=== PATIENT | male | born 1955 | race Caucasian/White ===

== ENCOUNTER → 2017-01-09 | Outpatient (CLI) | payer BC ==
[~2017-01-09] MED LIST: ASPI-496 PO; CITA40TA5 PO; ESOM40CA PO; FENTANYL PATCH TP; HYDR-3240 PO; HYDR473S47 PO; LISI-167 PO; LORA0.5T PO; LORA1TAB PO; METO25TA35 PO; OMEP-110 PO; OMNIPAQUE 350 MG/ML, 100ML BOTTLE ONE; OXYC5TAB3 PO
== END | disposition home or self-care (01) ==
LOC: CFH 08:59
PROVIDERS: ATTEND Internal Medicine Hematology & Oncology
DX: C15.9 Malignant neoplasm of esophagus, unspecified (principal); K20.8 Other esophagitis; K57.30 Diverticulosis of large intestine without perforation or abscess without bleeding
CPT/HCPCS: 71260; 74177; 82565; Q9967

== ENCOUNTER → 2018-01-15 | Outpatient (CLI) | payer BC | END | disposition home or self-care (01) | LOC: CFH 08:50 | PROVIDERS: ATTEND Internal Medicine Hematology & Oncology | DX: J98.11 Atelectasis (principal); D17.1 Benign lipomatous neoplasm of skin and subcutaneous tissue of trunk; C16.0 Malignant neoplasm of cardia | CPT/HCPCS: 71260; 74177; Q9967 ==

== ENCOUNTER → 2018-02-21 | Outpatient (CLI) | payer BC ==
[~2018-02-21] MED LIST changes: -OMNIPAQUE 350 MG/ML, 100ML BOTTLE ONE
== END | disposition home or self-care (01) ==
LOC: RAD 09:27
PROVIDERS: ATTEND Internal Medicine Critical Care Medicine
DX: J18.9 Pneumonia, unspecified organism (principal); R91.8 Other nonspecific abnormal finding of lung field; C15.9 Malignant neoplasm of esophagus, unspecified; C16.0 Malignant neoplasm of cardia; Z79.82 Long term (current) use of aspirin
CPT/HCPCS: 74230

== ENCOUNTER 2018-06-27 21:29 | Emergency (ER) | payer BC ==
[2018-06-27] MEDS ORDERED: FENTANYL PF 100 MCG/2ML IV ONE (22:00)
[2018-06-27] MEDS ORDERED: SODIUM CHLORIDE FLUSH 10ML SYR IVF ONE (22:00)
[2018-06-27] MEDS ORDERED: SODIUM CHLORIDE 0.9% 1,000ML IVBOLUS ONE (22:00)
[2018-06-27] MEDS ORDERED: FENTANYL PF 100 MCG/2ML ONE (22:08)
[2018-06-27] MEDS ORDERED: OMEP40CA6 PO (22:17)
[2018-06-27 22:38] LABS: BASOPHILS # (AUTO) 0.02 x10^3/uL (0-0.1); BASOPHILS % (AUTO) 0 % (0-1); EOSINOPHILS # (AUTO) 0.02 x10^3/uL (0-0.4); EOSINOPHILS % (AUTO) 0 % (1-7); LYMPHOCYTES # (AUTO) 0.74 x10^3/uL (1-3.4); LYMPHOCYTES % (AUTO) 11 % (22-44); MD NO; MEAN CORPUSCULAR HGB CONC 33.6 g/dL (33.2-36.2); MEAN CORPUSCULAR VOLUME 83.5 fL (81-97); MEAN PLATELET VOLUME 8.8 fL (7.4-10.4); MONOCYTES # (AUTO) 0.37 x10^3/uL (0.2-0.8); MONOCYTES % (AUTO) 6 % (2-9); NEUTROPHILS # (AUTO) 5.39 x10^3/uL (1.8-6.8); NEUTROPHILS % (AUTO) 82 % (42-75); PLATELET COUNT 182 x10^3/uL (130-400); RED BLOOD COUNT 5.09 x10^6/uL (4.38-5.82); RED CELL DISTRIBUTION WIDTH 15.1 % (9.4-14.8)
[2018-06-27 22:42] LABS: ALBUMIN 3.4 g/dL (3.4-5.0); ANION GAP 9 mmol/L (5-15); CALCIUM 8.8 mg/dL (8.5-10.1); CHLORIDE 103 mmol/L (98-107); CREATININE 0.95 mg/dL (0.7-1.3); INTERNATIONAL NORMALIZED RATIO 1.01 (0.93-1.1); PROTHROMBIN TIME 10.7 Seconds (9.6-11.5)
[2018-06-27] MEDS ORDERED: KETOROLAC 30 MG/1 ML ONE (23:12)
[2018-06-27] MEDS ORDERED: METOCLOPRAMIDE 5 MG/ML, 2ML ONE (23:12)
[2018-06-27] MEDS ORDERED: DIPHENHYDRAMINE 50 MG/ML, 1ML ONE (23:12)
[2018-06-27] MEDS ORDERED: METOCLOPRAMIDE 5 MG/ML, 2ML IVPush ONE (23:30)
[2018-06-27] MEDS ORDERED: KETOROLAC 30 MG/1 ML IVPush ONE (23:30)
[2018-06-27] MEDS ORDERED: DIPHENHYDRAMINE 50 MG/ML, 1ML IVPush ONE (23:30)
[2018-06-27 23:51] VITALS: BP 128/80
== END 2018-06-28 00:44 | disposition home or self-care (01) ==
LOC: ED 23:59
DX: G44.52 New daily persistent headache (NDPH) (principal); K21.9 Gastro-esophageal reflux disease without esophagitis; I10 Essential (primary) hypertension; Z87.891 Personal history of nicotine dependence; Z87.19 Personal history of other diseases of the digestive system
CPT/HCPCS: 36415; 70450; 80048; 82040; 85025; 85610; 96361; 96374; 96375; 99284; J1200; J1885; J2765; J3010; J7030

== ENCOUNTER 2018-07-11 16:02 | Observation (INO) | payer BC, MEDICARE ==
[~2018-07-11] VITALS: Ht 175.3 cm; Wt 80.2 kg
[~2018-07-11 16:02] MED LIST changes: +OMEP40CA6 PO
[2018-07-11] MEDS ORDERED: METOCLOPRAMIDE 5 MG/ML, 2ML ONE (16:28)
[2018-07-11] MEDS ORDERED: KETOROLAC 30 MG/1 ML ONE (16:28)
[2018-07-11] MEDS ORDERED: DIPHENHYDRAMINE 50 MG/ML, 1ML ONE (16:28)
[2018-07-11] MEDS ORDERED: METOCLOPRAMIDE 5 MG/ML, 2ML IVPush ONE (16:30)
[2018-07-11] MEDS ORDERED: SODIUM CHLORIDE FLUSH 10ML SYR IVF ONE (16:30)
[2018-07-11] MEDS ORDERED: KETOROLAC 30 MG/1 ML IVPush ONE (16:30)
[2018-07-11] MEDS ORDERED: DIPHENHYDRAMINE 50 MG/ML, 1ML IVPush ONE (16:30)
[2018-07-11] MEDS ORDERED: SODIUM CHLORIDE 0.9% 1,000ML IVBOLUS ONE (16:30)
[2018-07-11 16:40] LABS: BASOPHILS # (AUTO) 0.03 x10^3/uL (0-0.1); BASOPHILS % (AUTO) 0 % (0-1); EOSINOPHILS # (AUTO) 0.16 x10^3/uL (0-0.4); EOSINOPHILS % (AUTO) 2 % (1-7); LYMPHOCYTES # (AUTO) 0.94 x10^3/uL (1-3.4); LYMPHOCYTES % (AUTO) 12 % (22-44); MD NO; MEAN CORPUSCULAR HEMOGLOBIN 27.9 pg (27.5-34.5); MEAN CORPUSCULAR HGB CONC 33.1 g/dL (33.2-36.2); MEAN CORPUSCULAR VOLUME 84.3 fL (81-97); MEAN PLATELET VOLUME 8.4 fL (7.4-10.4); MONOCYTES # (AUTO) 0.41 x10^3/uL (0.2-0.8); MONOCYTES % (AUTO) 5 % (2-9); NEUTROPHILS # (AUTO) 6.46 x10^3/uL (1.8-6.8); NEUTROPHILS % (AUTO) 81 % (42-75); PLATELET COUNT 204 x10^3/uL (130-400); RED BLOOD COUNT 5.17 x10^6/uL (4.38-5.82); RED CELL DISTRIBUTION WIDTH 15.4 % (9.4-14.8)
[2018-07-11 16:50] LABS: ALBUMIN 3.4 g/dL (3.4-5.0); ANION GAP 9 mmol/L (5-15); CALCIUM 8.3 mg/dL (8.5-10.1); CHLORIDE 111 mmol/L (98-107)
[2018-07-11 16:53] LABS: ALANINE AMINOTRANSFERASE 16 U/L (12-78); ALKALINE PHOSPHATASE 58 U/L (45-117); BILIRUBIN,TOTAL 0.2 mg/dL (0.2-1.0); CREATININE 0.93 mg/dL (0.7-1.3); TOTAL PROTEIN 6.8 g/dL (6.4-8.2)
--- NOTE | 2018-07-11 17:22 | NUR ---
PT RESTING IN BED, NAD, NO NEEDS AT THIS, FAMILY AT BEDSIDE
--- NOTE | 2018-07-11 17:39 | NUR ---
MD VALENTIN AT BEDSIDE DISCUSSING POC
[2018-07-11] MEDS ORDERED: LIDODERM 5% PATCH TD PRN (19:00)
[2018-07-11] MEDS ORDERED: DOCUSATE 100 MG CAPSULE PO PRN (19:00)
[2018-07-11] MEDS ORDERED: OMNIPAQUE 350 MG/ML, 100ML BOTTLE ONE (19:41)
[2018-07-11] MEDS: ENOXAPARIN 40 MG/0.4 ML SQ SCH (20:44)
[2018-07-11 20:49] VITALS: BP 122/74
[2018-07-11] MEDS: ACETAMINOPHEN 325 MG TABLET PO PRN (21:06)
[2018-07-11] MEDS: LORazepam 1MG TABLET PO PRN (21:07)
[2018-07-11] MEDS: BUTALB/APAP/CAFFEINE 50MG/325MG/40MG PO PRN (23:59)
[2018-07-12 02:20] VITALS: BP 118/66
[2018-07-12] MEDS: OMEPRAZOLE 20 MG CAPSULE.DR PO SCH (05:36)
[2018-07-12 06:00] LABS: CHOL/HDL RATIO 4.2; LDL/HDL RATIO 2.6 (0.5-3.0)
[2018-07-12 06:32] VITALS: BP 120/76
[2018-07-12 07:01] VITALS: BP 101/70
[2018-07-12] MEDS: ASPIRIN 81 MG TABLET CHEW PO/NG SCH (08:51)
[2018-07-12] MEDS: CITALOPRAM 20 MG TABLET PO SCH (08:51)
[2018-07-12] MEDS: BUTALB/APAP/CAFFEINE 50MG/325MG/40MG PO PRN ×3 (08:51→23:46)
[2018-07-12] MEDS: ACETAMINOPHEN 325 MG TABLET PO PRN ×2 (09:55→17:03)
[2018-07-12] MEDS: ONDANSETRON 4 MG TABLET PO PRN ×2 (09:55→17:03)
[2018-07-12 12:19] VITALS: BP_SYST 129; BP_SYST 131; BP_SYST 137; BP_DIAS 81; BP_DIAS 84; BP_DIAS 86
[2018-07-12 19:00] VITALS: BP 117/72
[2018-07-12] MEDS: LORazepam 1MG TABLET PO PRN (20:46)
[2018-07-12] MEDS: ENOXAPARIN 40 MG/0.4 ML SQ SCH (20:46)
[2018-07-13 00:22] VITALS: BP 117/73
[2018-07-13] MEDS: OMEPRAZOLE 20 MG CAPSULE.DR PO SCH (05:49)
[2018-07-13 06:16] LABS: BASOPHILS # (AUTO) 0.04 x10^3/uL (0-0.1); BASOPHILS % (AUTO) 1 % (0-1); EOSINOPHILS # (AUTO) 0.13 x10^3/uL (0-0.4); EOSINOPHILS % (AUTO) 3 % (1-7); LYMPHOCYTES # (AUTO) 1.22 x10^3/uL (1-3.4); LYMPHOCYTES % (AUTO) 24 % (22-44); MD NO; MEAN CORPUSCULAR HEMOGLOBIN 28.4 pg (27.5-34.5); MEAN CORPUSCULAR HGB CONC 33.8 g/dL (33.2-36.2); MEAN CORPUSCULAR VOLUME 83.9 fL (81-97); MEAN PLATELET VOLUME 8.5 fL (7.4-10.4); MONOCYTES # (AUTO) 0.45 x10^3/uL (0.2-0.8); MONOCYTES % (AUTO) 9 % (2-9); NEUTROPHILS # (AUTO) 3.36 x10^3/uL (1.8-6.8); NEUTROPHILS % (AUTO) 65 % (42-75); PLATELET COUNT 188 x10^3/uL (130-400); RED BLOOD COUNT 4.74 x10^6/uL (4.38-5.82)
[2018-07-13 06:21] LABS: ANION GAP 8 mmol/L (5-15); CALCIUM 8.6 mg/dL (8.5-10.1); CHLORIDE 108 mmol/L (98-107); CREATININE 0.84 mg/dL (0.7-1.3)
[2018-07-13] MEDS: CITALOPRAM 20 MG TABLET PO SCH (08:13)
[2018-07-13] MEDS: ASPIRIN 81 MG TABLET CHEW PO/NG SCH (08:13)
[2018-07-13 08:20] VITALS: BP 116/75
[2018-07-13] MEDS: BUTALB/APAP/CAFFEINE 50MG/325MG/40MG PO PRN ×2 (08:56→19:57)
[2018-07-13 14:45] VITALS: BP 117/68
[2018-07-13] MEDS: ENOXAPARIN 40 MG/0.4 ML SQ SCH (19:57)
[2018-07-13] MEDS: LORazepam 1MG TABLET PO PRN (19:57)
[2018-07-13 20:00] VITALS: BP 103/64
[2018-07-14 02:00] VITALS: BP 109/69
[2018-07-14] MEDS: OMEPRAZOLE 20 MG CAPSULE.DR PO SCH (06:40)
[2018-07-14 06:48] VITALS: BP 111/74
[2018-07-14] MEDS: CITALOPRAM 20 MG TABLET PO SCH (08:09)
[2018-07-14] MEDS: ASPIRIN 81 MG TABLET CHEW PO/NG SCH (08:09)
[2018-07-14] MEDS: BUTALB/APAP/CAFFEINE 50MG/325MG/40MG PO PRN ×3 (10:37→21:18)
[2018-07-14] MEDS: ONDANSETRON 4 MG TABLET PO PRN (11:18)
[2018-07-14 13:19] LABS: BASOPHILS # (AUTO) 0.03 x10^3/uL (0-0.1); BASOPHILS % (AUTO) 0 % (0-1); EOSINOPHILS % (AUTO) 2 % (1-7); LYMPHOCYTES # (AUTO) 0.86 x10^3/uL (1-3.4); LYMPHOCYTES % (AUTO) 14 % (22-44); MD NO; MEAN CORPUSCULAR HEMOGLOBIN 28.4 pg (27.5-34.5); MEAN CORPUSCULAR HGB CONC 33.6 g/dL (33.2-36.2); MEAN CORPUSCULAR VOLUME 84.6 fL (81-97); MEAN PLATELET VOLUME 8.9 fL (7.4-10.4); MONOCYTES # (AUTO) 0.33 x10^3/uL (0.2-0.8); MONOCYTES % (AUTO) 5 % (2-9); NEUTROPHILS # (AUTO) 4.89 x10^3/uL (1.8-6.8); NEUTROPHILS % (AUTO) 79 % (42-75); PLATELET COUNT 192 x10^3/uL (130-400); RED BLOOD COUNT 4.91 x10^6/uL (4.38-5.82); RED CELL DISTRIBUTION WIDTH 15.1 % (9.4-14.8)
[2018-07-14 14:47] VITALS: BP 114/72
[2018-07-14 19:00] VITALS: BP 106/66
[2018-07-14] MEDS: ENOXAPARIN 40 MG/0.4 ML SQ SCH (21:18)
[2018-07-14] MEDS: LORazepam 1MG TABLET PO PRN (21:22)
[2018-07-15 02:03] VITALS: BP 120/77
[2018-07-15] MEDS: OMEPRAZOLE 20 MG CAPSULE.DR PO SCH (06:05)
[2018-07-15 06:12] LABS: ANION GAP 7 mmol/L (5-15); CALCIUM 8.2 mg/dL (8.5-10.1); CHLORIDE 108 mmol/L (98-107); CREATININE 0.85 mg/dL (0.7-1.3)
[2018-07-15 07:14] VITALS: BP 129/79
[2018-07-15] MEDS: ASPIRIN 81 MG TABLET CHEW PO/NG SCH (09:20)
[2018-07-15] MEDS: CITALOPRAM 20 MG TABLET PO SCH (09:20)
[2018-07-15] MEDS: BUTALB/APAP/CAFFEINE 50MG/325MG/40MG PO PRN ×2 (09:22→15:56)
[2018-07-15] MEDS: ONDANSETRON 4 MG TABLET PO PRN (09:22)
[2018-07-15] MEDS ORDERED: VALPROATE SODIUM 500 MG in DEXTROSE 5% 100 ML IV PRN (10:30)
[2018-07-15 13:58] VITALS: BP 110/73
[2018-07-15] MEDS: ACETAMINOPHEN 325 MG TABLET PO PRN (14:37)
[2018-07-15] MEDS ORDERED: PROCHLORPERAZINE 5 MG/ML, 2ML IVPush ONE (17:00)
[2018-07-15] MEDS ORDERED: KETOROLAC 30 MG/1 ML IVPush SCH (17:00)
[2018-07-15] MEDS ORDERED: DIPHENHYDRAMINE 50 MG/ML, 1ML IVPush ONE (17:00)
[2018-07-15] MEDS ORDERED: PROCHLORPERAZINE 5 MG/ML, 2ML IVPush PRN (18:30)
[2018-07-15] MEDS ORDERED: DIPHENHYDRAMINE 50 MG/ML, 1ML IVPush PRN (18:30)
[2018-07-15] MEDS ORDERED: KETOROLAC 30 MG/1 ML IVPush PRN (18:30)
[2018-07-15 20:00] VITALS: BP 122/81
[2018-07-15] MEDS: ENOXAPARIN 40 MG/0.4 ML SQ SCH (20:18)
[2018-07-16 02:22] VITALS: BP 110/68
[2018-07-16] MEDS: OMEPRAZOLE 20 MG CAPSULE.DR PO SCH (05:55)
[2018-07-16 05:58] LABS: BASOPHILS # (AUTO) 0.02 x10^3/uL (0-0.1); BASOPHILS % (AUTO) 0 % (0-1); EOSINOPHILS # (AUTO) 0.17 x10^3/uL (0-0.4); EOSINOPHILS % (AUTO) 3 % (1-7); LYMPHOCYTES # (AUTO) 1.02 x10^3/uL (1-3.4); LYMPHOCYTES % (AUTO) 19 % (22-44); MD NO; MEAN CORPUSCULAR HEMOGLOBIN 28.4 pg (27.5-34.5); MEAN CORPUSCULAR HGB CONC 33.5 g/dL (33.2-36.2); MEAN CORPUSCULAR VOLUME 84.8 fL (81-97); MEAN PLATELET VOLUME 8.6 fL (7.4-10.4); MONOCYTES # (AUTO) 0.35 x10^3/uL (0.2-0.8); MONOCYTES % (AUTO) 6 % (2-9); NEUTROPHILS # (AUTO) 3.95 x10^3/uL (1.8-6.8); NEUTROPHILS % (AUTO) 72 % (42-75); PLATELET COUNT 184 x10^3/uL (130-400); RED BLOOD COUNT 4.71 x10^6/uL (4.38-5.82)
[2018-07-16 06:12] LABS: ANION GAP 7 mmol/L (5-15); C-REACTIVE PROTEIN, QUANT 0.08 mg/dL (0.02-0.49); CALCIUM 8.4 mg/dL (8.5-10.1); CHLORIDE 107 mmol/L (98-107); CREATININE 0.94 mg/dL (0.7-1.3)
[2018-07-16 06:47] VITALS: BP 126/74
[2018-07-16] MEDS: CITALOPRAM 20 MG TABLET PO SCH (08:05)
[2018-07-16] MEDS: ASPIRIN 81 MG TABLET CHEW PO/NG SCH (08:05)
[2018-07-16 12:02] VITALS: BP 119/68
[2018-07-16] MEDS ORDERED: ACET325T14 PO (12:47)
[2018-07-16] MEDS ORDERED: ATOR40TA78 PO (12:47)
[2018-07-16] MEDS ORDERED: ASPI-515 PO/NG (12:47)
[2018-07-16] MEDS ORDERED: ONDA4TAB7 PO (14:46)
== END 2018-07-16 14:50 | disposition home or self-care (01) ==
LOC: ED 16:14 → INTOOBSV 17:52 → EDIP 17:52 → 4EST 18:53 → DCLOUNGE 07-16 14:20
PROVIDERS: ADMIT Family Medicine; ATTEND Family Medicine
DX: G45.9 Transient cerebral ischemic attack, unspecified (principal); G43.909 Migraine, unspecified, not intractable, without status migrainosus; F33.9 Major depressive disorder, recurrent, unspecified; I10 Essential (primary) hypertension; F10.21 Alcohol dependence, in remission; I25.10 Atherosclerotic heart disease of native coronary artery without angina pectoris; I25.2 Old myocardial infarction; K21.9 Gastro-esophageal reflux disease without esophagitis; M47.812 Spondylosis without myelopathy or radiculopathy, cervical region; R11.10 Vomiting, unspecified; R47.02 Dysphasia; R13.10 Dysphagia, unspecified; Z87.891 Personal history of nicotine dependence
CPT/HCPCS: 36415; 70450; 70496; 70498; 70551; 72125; 80048; 80053; 80061; 82962; 85025; 85651; 86140; 92523; 92526; 92610; 93005; 93306; 95819; 96361; 96365; 96372; 96375; 96376; 97162; 97165; 99285; G0378; J0780; J1200; J1650; J1885; J2765; J7030; Q0162; Q9967; 96374

== ENCOUNTER 2018-07-19 12:01 | Inpatient (IN) | payer BC, MEDICARE ==
[~2018-07-19] VITALS: Ht 175.3 cm; Wt 74.8 kg
[~2018-07-19 12:01] MED LIST changes: +ACET325T14 PO; +ASPI-515 PO/NG; +ATOR40TA78 PO; +ONDA4TAB7 PO
--- NOTE | 2018-07-19 12:55 | NUR ---
PT HX [facility] RECENT NOTED LESSION IN THE EYES PER DR MOODY PT TO HAVE MRI W/WO CONTRAST TO THE ORBITS AND THE BRAIN
--- NOTE | 2018-07-19 14:10 | NUR ---
break coverage: assumed care of pt on behalf of primary RN for lunch break. pt in RAD
[2018-07-19] MEDS ORDERED: ACETAMINOPHEN 325 MG TABLET PO PRN (16:00)
[2018-07-19] MEDS ORDERED: LABETALOL 5MG/ML, 20ML IVPush PRN (16:00)
[2018-07-19] MEDS: OXYcodone IR 5MG TABLET PO PRN ×2 (16:43→19:32)
[2018-07-19 16:44] VITALS: BP 123/78
[2018-07-19 19:07] VITALS: BP 121/70
[2018-07-19] MEDS: ATORVASTATIN 40 MG TABLET PO SCH (19:29)
[2018-07-19] MEDS: LORazepam 1MG TABLET PO PRN (20:43)
[2018-07-19] MEDS: ONDANSETRON ODT 4 MG PO PRN (22:12)
[2018-07-20 00:31] VITALS: BP 144/80
[2018-07-20] MEDS: ONDANSETRON 2MG/ML, 2ML IVPush PRN ×3 (01:59→16:48)
[2018-07-20] MEDS: OXYcodone IR 5MG TABLET PO PRN ×2 (02:03→06:12)
[2018-07-20 04:43] LABS: BASOPHILS # (AUTO) 0.04 x10^3/uL (0-0.1); BASOPHILS % (AUTO) 1 % (0-1); EOSINOPHILS % (AUTO) 3 % (1-7); LYMPHOCYTES # (AUTO) 0.81 x10^3/uL (1-3.4); LYMPHOCYTES % (AUTO) 11 % (22-44); MD NO; MEAN CORPUSCULAR HEMOGLOBIN 28.4 pg (27.5-34.5); MEAN CORPUSCULAR HGB CONC 33.2 g/dL (33.2-36.2); MEAN CORPUSCULAR VOLUME 85.6 fL (81-97); MEAN PLATELET VOLUME 8.8 fL (7.4-10.4); MONOCYTES # (AUTO) 0.64 x10^3/uL (0.2-0.8); MONOCYTES % (AUTO) 8 % (2-9); NEUTROPHILS # (AUTO) 6.02 x10^3/uL (1.8-6.8); NEUTROPHILS % (AUTO) 78 % (42-75); PLATELET COUNT 216 x10^3/uL (130-400); RED BLOOD COUNT 5.11 x10^6/uL (4.38-5.82); RED CELL DISTRIBUTION WIDTH 15.7 % (9.4-14.8)
[2018-07-20 04:44] LABS: ALANINE AMINOTRANSFERASE 14 U/L (12-78); ALBUMIN 3.4 g/dL (3.4-5.0); ANION GAP 10 mmol/L (5-15); CALCIUM 8.4 mg/dL (8.5-10.1); CHLORIDE 108 mmol/L (98-107); CREATININE 0.95 mg/dL (0.7-1.3)
[2018-07-20 04:46] LABS: ALKALINE PHOSPHATASE 49 U/L (45-117); BILIRUBIN,TOTAL 0.3 mg/dL (0.2-1.0); TOTAL PROTEIN 6.9 g/dL (6.4-8.2)
[2018-07-20] MEDS: HYDROmorphone 2 MG/ML, 1ML IVPush PRN ×4 (07:54→21:36)
[2018-07-20] MEDS: OMEPRAZOLE 20 MG CAPSULE.DR PO SCH (07:54)
[2018-07-20 08:17] VITALS: BP 123/77
[2018-07-20] MEDS: CITALOPRAM 20 MG TABLET PO SCH (09:04)
[2018-07-20 12:45] LABS: RAPID PLASMA REAGIN Nonreactive (Nonreactive)
[2018-07-20] MEDS: ONDANSETRON ODT 4 MG PO PRN (13:30)
[2018-07-20 14:36] VITALS: BP 127/75
[2018-07-20] MEDS: LORazepam 1MG TABLET PO PRN ×2 (17:56→21:42)
[2018-07-20 18:41] VITALS: BP 138/74
[2018-07-20] MEDS: ATORVASTATIN 40 MG TABLET PO SCH (21:00)
[2018-07-21 00:07] VITALS: BP 117/72
[2018-07-21 04:12] LABS: ALBUMIN 3.2 g/dL (3.4-5.0); ANION GAP 6 mmol/L (5-15); BASOPHILS # (AUTO) 0.05 x10^3/uL (0-0.1); BASOPHILS % (AUTO) 1 % (0-1); CALCIUM 8.7 mg/dL (8.5-10.1); CHLORIDE 107 mmol/L (98-107); CREATININE 1.06 mg/dL (0.7-1.3); EOSINOPHILS # (AUTO) 0.29 x10^3/uL (0-0.4); EOSINOPHILS % (AUTO) 4 % (1-7); LYMPHOCYTES # (AUTO) 1.23 x10^3/uL (1-3.4); LYMPHOCYTES % (AUTO) 16 % (22-44); MD NO; MEAN CORPUSCULAR HEMOGLOBIN 28.5 pg (27.5-34.5); MEAN CORPUSCULAR HGB CONC 33.4 g/dL (33.2-36.2); MEAN CORPUSCULAR VOLUME 85.3 fL (81-97); MEAN PLATELET VOLUME 8.6 fL (7.4-10.4); MONOCYTES # (AUTO) 0.61 x10^3/uL (0.2-0.8); MONOCYTES % (AUTO) 8 % (2-9); NEUTROPHILS # (AUTO) 5.76 x10^3/uL (1.8-6.8); NEUTROPHILS % (AUTO) 73 % (42-75); PLATELET COUNT 225 x10^3/uL (130-400); RED BLOOD COUNT 5.04 x10^6/uL (4.38-5.82); RED CELL DISTRIBUTION WIDTH 15.5 % (9.4-14.8)
[2018-07-21] MEDS: HYDROmorphone 2 MG/ML, 1ML IVPush PRN ×5 (05:30→22:39)
[2018-07-21] MEDS: ONDANSETRON 2MG/ML, 2ML IVPush PRN ×3 (05:30→20:06)
[2018-07-21] MEDS ORDERED: POTASSIUM CHLORIDE 20 MEQ TAB.ER.PRT PO ONE ×2 (07:30→11:30)
[2018-07-21] MEDS: OMEPRAZOLE 20 MG CAPSULE.DR PO SCH (07:34)
[2018-07-21] MEDS: ONDANSETRON ODT 4 MG PO PRN ×2 (10:50→14:22)
[2018-07-21] MEDS: CITALOPRAM 20 MG TABLET PO SCH (10:50)
[2018-07-21 11:45] LABS: BASOPHILS # (AUTO) 0.04 x10^3/uL (0-0.1); BASOPHILS % (AUTO) 1 % (0-1); EOSINOPHILS # (AUTO) 0.21 x10^3/uL (0-0.4); EOSINOPHILS % (AUTO) 3 % (1-7); LYMPHOCYTES # (AUTO) 0.77 x10^3/uL (1-3.4); LYMPHOCYTES % (AUTO) 10 % (22-44); MD NO; MEAN CORPUSCULAR HEMOGLOBIN 28.4 pg (27.5-34.5); MEAN CORPUSCULAR HGB CONC 33.3 g/dL (33.2-36.2); MEAN CORPUSCULAR VOLUME 85.3 fL (81-97); MEAN PLATELET VOLUME 8.6 fL (7.4-10.4); MONOCYTES % (AUTO) 7 % (2-9); NEUTROPHILS # (AUTO) 6.13 x10^3/uL (1.8-6.8); NEUTROPHILS % (AUTO) 80 % (42-75); PLATELET COUNT 248 x10^3/uL (130-400); RED BLOOD COUNT 5.38 x10^6/uL (4.38-5.82); RED CELL DISTRIBUTION WIDTH 15.4 % (9.4-14.8)
[2018-07-21 11:57] LABS: ALBUMIN 3.7 g/dL (3.4-5.0); ANION GAP 8 mmol/L (5-15); CALCIUM 8.7 mg/dL (8.5-10.1); CHLORIDE 105 mmol/L (98-107)
[2018-07-21 12:05] LABS: ALANINE AMINOTRANSFERASE 16 U/L (12-78); ALKALINE PHOSPHATASE 57 U/L (45-117); BILIRUBIN,TOTAL 0.3 mg/dL (0.2-1.0); CREATININE 0.96 mg/dL (0.7-1.3); TOTAL PROTEIN 7.7 g/dL (6.4-8.2)
[2018-07-21 12:27] VITALS: BP 127/80
[2018-07-21] MEDS ORDERED: OMNIPAQUE 350 MG/ML, 100ML BOTTLE ONE (13:29)
[2018-07-21] MEDS: SCOPOLAMINE PATCH, 1.5MG PATCH.TD72 TD SCH (14:58)
[2018-07-21] MEDS ORDERED: LIDOCAINE-MPF 1%, 5ML ONE ×2 (15:19→15:49)
[2018-07-21 17:49] LABS: GLUCOSE, CSF 29 mg/dL (40-80); TOTAL PROTEIN,CSF 22 mg/dL (15-45)
[2018-07-21 18:40] VITALS: BP 133/82
[2018-07-21] MEDS: ATORVASTATIN 40 MG TABLET PO SCH ×2 (20:06→20:12)
[2018-07-21] MEDS: LORazepam 1MG TABLET PO PRN (21:41)
[2018-07-22 01:10] VITALS: BP 145/82
[2018-07-22] MEDS: HYDROmorphone 2 MG/ML, 1ML IVPush PRN ×5 (01:23→18:40)
[2018-07-22] MEDS: ONDANSETRON 2MG/ML, 2ML IVPush PRN ×2 (01:31→07:51)
[2018-07-22 05:19] LABS: BASOPHILS # (AUTO) 0.04 x10^3/uL (0-0.1); BASOPHILS % (AUTO) 1 % (0-1); EOSINOPHILS # (AUTO) 0.08 x10^3/uL (0-0.4); EOSINOPHILS % (AUTO) 1 % (1-7); LYMPHOCYTES # (AUTO) 0.86 x10^3/uL (1-3.4); LYMPHOCYTES % (AUTO) 14 % (22-44); MD NO; MEAN CORPUSCULAR HEMOGLOBIN 28.1 pg (27.5-34.5); MEAN CORPUSCULAR HGB CONC 33.1 g/dL (33.2-36.2); MEAN CORPUSCULAR VOLUME 84.9 fL (81-97); MEAN PLATELET VOLUME 8.3 fL (7.4-10.4); MONOCYTES # (AUTO) 0.42 x10^3/uL (0.2-0.8); MONOCYTES % (AUTO) 7 % (2-9); NEUTROPHILS # (AUTO) 4.72 x10^3/uL (1.8-6.8); NEUTROPHILS % (AUTO) 77 % (42-75); PLATELET COUNT 240 x10^3/uL (130-400); RED BLOOD COUNT 5.23 x10^6/uL (4.38-5.82); RED CELL DISTRIBUTION WIDTH 15.4 % (9.4-14.8)
[2018-07-22 05:27] LABS: ALBUMIN 3.3 g/dL (3.4-5.0); ANION GAP 7 mmol/L (5-15); CALCIUM 8.9 mg/dL (8.5-10.1); CHLORIDE 108 mmol/L (98-107); CREATININE 0.92 mg/dL (0.7-1.3)
[2018-07-22 07:10] VITALS: BP 114/67
[2018-07-22] MEDS: OMEPRAZOLE 20 MG CAPSULE.DR PO SCH (07:56)
[2018-07-22] MEDS: CITALOPRAM 20 MG TABLET PO SCH (08:00)
[2018-07-22] MEDS: AcetaZOLAMIDE INJ 500 MG IVPush SCH (12:39)
[2018-07-22] MEDS: ONDANSETRON ODT 4 MG PO PRN (14:14)
[2018-07-22 14:18] VITALS: BP 115/65
[2018-07-22 19:54] VITALS: BP 115/71
[2018-07-22] MEDS: ATORVASTATIN 40 MG TABLET PO SCH (20:04)
[2018-07-22] MEDS: LORazepam 1MG TABLET PO PRN (20:05)
[2018-07-23] MEDS: HYDROmorphone 2 MG/ML, 1ML IVPush PRN ×4 (01:47→17:39)
[2018-07-23] MEDS: AcetaZOLAMIDE INJ 500 MG IVPush SCH ×2 (01:47→14:12)
[2018-07-23 02:06] VITALS: BP 118/76
[2018-07-23 06:10] LABS: BASOPHILS # (AUTO) 0.07 x10^3/uL (0-0.1); BASOPHILS % (AUTO) 1 % (0-1); EOSINOPHILS # (AUTO) 0.12 x10^3/uL (0-0.4); EOSINOPHILS % (AUTO) 2 % (1-7); LYMPHOCYTES # (AUTO) 1.19 x10^3/uL (1-3.4); LYMPHOCYTES % (AUTO) 18 % (22-44); MD NO; MEAN CORPUSCULAR HGB CONC 32.9 g/dL (33.2-36.2); MEAN CORPUSCULAR VOLUME 84.9 fL (81-97); MEAN PLATELET VOLUME 8.8 fL (7.4-10.4); MONOCYTES # (AUTO) 0.61 x10^3/uL (0.2-0.8); MONOCYTES % (AUTO) 9 % (2-9); NEUTROPHILS # (AUTO) 4.54 x10^3/uL (1.8-6.8); NEUTROPHILS % (AUTO) 70 % (42-75); PLATELET COUNT 230 x10^3/uL (130-400); RED BLOOD COUNT 5.37 x10^6/uL (4.38-5.82); RED CELL DISTRIBUTION WIDTH 15.5 % (9.4-14.8)
[2018-07-23 06:19] LABS: ANION GAP 6 mmol/L (5-15); CHLORIDE 108 mmol/L (98-107); CREATININE 1.05 mg/dL (0.7-1.3)
[2018-07-23 06:20] LABS: C-REACTIVE PROTEIN, QUANT 0.47 mg/dL (0.02-0.49)
[2018-07-23 07:45] VITALS: BP 93/60
[2018-07-23] MEDS: OMEPRAZOLE 20 MG CAPSULE.DR PO SCH (08:11)
[2018-07-23] MEDS: CITALOPRAM 20 MG TABLET PO SCH (08:11)
[2018-07-23 14:00] VITALS: BP 118/78
[2018-07-23] MEDS: ONDANSETRON 2MG/ML, 2ML IVPush PRN (17:49)
[2018-07-23] MEDS: DOCUSATE 100 MG CAPSULE PO PRN (17:53)
[2018-07-23 19:21] VITALS: BP 109/69
[2018-07-23] MEDS: ATORVASTATIN 40 MG TABLET PO SCH (20:05)
[2018-07-23] MEDS: LORazepam 1MG TABLET PO PRN (20:06)
[2018-07-24 02:08] VITALS: BP 122/71
[2018-07-24] MEDS: AcetaZOLAMIDE INJ 500 MG IVPush SCH ×2 (02:23→14:23)
[2018-07-24] MEDS: ONDANSETRON 2MG/ML, 2ML IVPush PRN ×2 (02:30→09:20)
[2018-07-24] MEDS: HYDROmorphone 2 MG/ML, 1ML IVPush PRN ×3 (02:31→18:44)
[2018-07-24 05:10] LABS: BASOPHILS # (AUTO) 0.05 x10^3/uL (0-0.1); BASOPHILS % (AUTO) 1 % (0-1); EOSINOPHILS # (AUTO) 0.12 x10^3/uL (0-0.4); EOSINOPHILS % (AUTO) 2 % (1-7); LYMPHOCYTES # (AUTO) 1.17 x10^3/uL (1-3.4); LYMPHOCYTES % (AUTO) 17 % (22-44); MD NO; MEAN CORPUSCULAR HEMOGLOBIN 27.9 pg (27.5-34.5); MEAN CORPUSCULAR HGB CONC 32.4 g/dL (33.2-36.2); MEAN PLATELET VOLUME 8.7 fL (7.4-10.4); MONOCYTES # (AUTO) 0.61 x10^3/uL (0.2-0.8); MONOCYTES % (AUTO) 9 % (2-9); NEUTROPHILS # (AUTO) 4.82 x10^3/uL (1.8-6.8); NEUTROPHILS % (AUTO) 71 % (42-75); PLATELET COUNT 217 x10^3/uL (130-400); RED BLOOD COUNT 5.36 x10^6/uL (4.38-5.82); RED CELL DISTRIBUTION WIDTH 15.6 % (9.4-14.8)
[2018-07-24 05:15] LABS: CHLORIDE 109 mmol/L (98-107)
[2018-07-24 05:23] LABS: ANION GAP 8 mmol/L (5-15); CALCIUM 8.5 mg/dL (8.5-10.1); CREATININE 1.21 mg/dL (0.7-1.3)
[2018-07-24 06:41] VITALS: BP 111/72
[2018-07-24] MEDS: OMEPRAZOLE 20 MG CAPSULE.DR PO SCH (08:25)
[2018-07-24] MEDS: CITALOPRAM 20 MG TABLET PO SCH (08:25)
[2018-07-24 12:51] VITALS: BP 131/86
[2018-07-24] MEDS: LORazepam 1MG TABLET PO PRN ×2 (13:17→20:47)
[2018-07-24 14:14] LABS: ANA SCREEN POSITIVE (Negative)
[2018-07-24 14:15] LABS: ANTI-NUCLEAR ANTIBODY PATTERN SPECKLED
[2018-07-24] MEDS: SCOPOLAMINE PATCH, 1.5MG PATCH.TD72 TD SCH (14:23)
[2018-07-24 20:22] VITALS: BP 116/70
[2018-07-24] MEDS: ATORVASTATIN 40 MG TABLET PO SCH (20:47)
[2018-07-25 01:51] VITALS: BP 119/86
[2018-07-25] MEDS: AcetaZOLAMIDE INJ 500 MG IVPush SCH ×3 (02:42→20:55)
[2018-07-25] MEDS: ONDANSETRON 2MG/ML, 2ML IVPush PRN ×3 (02:53→16:17)
[2018-07-25] MEDS: HYDROmorphone 2 MG/ML, 1ML IVPush PRN ×4 (02:53→21:03)
[2018-07-25 05:16] LABS: ALBUMIN 3.3 g/dL (3.4-5.0); ANION GAP 7 mmol/L (5-15); CALCIUM 8.9 mg/dL (8.5-10.1); CHLORIDE 112 mmol/L (98-107); CREATININE 1.13 mg/dL (0.7-1.3)
[2018-07-25] MEDS: CITALOPRAM 20 MG TABLET PO SCH (09:05)
[2018-07-25] MEDS: OMEPRAZOLE 20 MG CAPSULE.DR PO SCH (09:05)
[2018-07-25] MEDS: DOCUSATE 100 MG CAPSULE PO PRN (09:16)
[2018-07-25 10:00] VITALS: BP 119/84
[2018-07-25 13:10] VITALS: BP 123/78
[2018-07-25 19:15] VITALS: BP 121/76
[2018-07-25] MEDS: ATORVASTATIN 40 MG TABLET PO SCH (20:49)
[2018-07-26 01:35] VITALS: BP 137/82
[2018-07-26] MEDS: HYDROmorphone 2 MG/ML, 1ML IVPush PRN ×4 (01:47→21:47)
[2018-07-26 04:59] LABS: BASOPHILS # (AUTO) 0.04 x10^3/uL (0-0.1); BASOPHILS % (AUTO) 0 % (0-1); EOSINOPHILS # (AUTO) 0.29 x10^3/uL (0-0.4); EOSINOPHILS % (AUTO) 4 % (1-7); LYMPHOCYTES # (AUTO) 1.15 x10^3/uL (1-3.4); LYMPHOCYTES % (AUTO) 14 % (22-44); MD NO; MEAN CORPUSCULAR HEMOGLOBIN 28.6 pg (27.5-34.5); MEAN CORPUSCULAR HGB CONC 33.4 g/dL (33.2-36.2); MEAN CORPUSCULAR VOLUME 85.6 fL (81-97); MEAN PLATELET VOLUME 8.8 fL (7.4-10.4); MONOCYTES # (AUTO) 0.65 x10^3/uL (0.2-0.8); MONOCYTES % (AUTO) 8 % (2-9); NEUTROPHILS # (AUTO) 6.09 x10^3/uL (1.8-6.8); NEUTROPHILS % (AUTO) 74 % (42-75); PLATELET COUNT 189 x10^3/uL (130-400); RED BLOOD COUNT 5.38 x10^6/uL (4.38-5.82); RED CELL DISTRIBUTION WIDTH 15.5 % (9.4-14.8)
[2018-07-26 05:07] LABS: INTERNATIONAL NORMALIZED RATIO 1.06 (0.93-1.1); PROTHROMBIN TIME 11.2 Seconds (9.6-11.5)
[2018-07-26 05:13] LABS: ALBUMIN 3.3 g/dL (3.4-5.0); ANION GAP 6 mmol/L (5-15); CALCIUM 8.5 mg/dL (8.5-10.1); CHLORIDE 111 mmol/L (98-107)
[2018-07-26 05:14] LABS: CREATININE 1.22 mg/dL (0.7-1.3)
[2018-07-26 06:50] VITALS: BP 131/86
[2018-07-26] MEDS ORDERED: POTASSIUM CHLORIDE 40 MEQ in SODIUM CHLORIDE 0.9% 500 ML IV ONE (07:00)
[2018-07-26] MEDS: ONDANSETRON 2MG/ML, 2ML IVPush PRN ×2 (07:47→18:15)
[2018-07-26] MEDS: CITALOPRAM 20 MG TABLET PO SCH (07:47)
[2018-07-26] MEDS: AcetaZOLAMIDE INJ 500 MG IVPush SCH ×2 (07:47→21:33)
[2018-07-26] MEDS: OMEPRAZOLE 20 MG CAPSULE.DR PO SCH (07:47)
[2018-07-26] MEDS: OXYcodone IR 5MG TABLET PO PRN (13:32)
[2018-07-26] MEDS: ONDANSETRON ODT 4 MG PO PRN (13:32)
[2018-07-26 13:35] VITALS: BP 127/77
[2018-07-26 19:46] VITALS: BP 122/79
[2018-07-26] MEDS: ATORVASTATIN 40 MG TABLET PO SCH ×2 (21:00→21:33)
[2018-07-27 01:37] VITALS: BP 119/80
[2018-07-27] MEDS: HYDROmorphone 2 MG/ML, 1ML IVPush PRN ×6 (04:15→20:55)
[2018-07-27] MEDS: ONDANSETRON 2MG/ML, 2ML IVPush PRN ×3 (04:15→18:05)
[2018-07-27] MEDS: ATORVASTATIN 40 MG TABLET PO SCH ×2 (04:57→21:00)
[2018-07-27 05:30] LABS: ALBUMIN 3.4 g/dL (3.4-5.0); ANION GAP 8 mmol/L (5-15); CALCIUM 8.7 mg/dL (8.5-10.1); CHLORIDE 113 mmol/L (98-107); CREATININE 1.13 mg/dL (0.7-1.3)
[2018-07-27] MEDS ORDERED: POTASSIUM CHLORIDE 60 MEQ in SODIUM CHLORIDE 0.9% 1,000 ML IV ONE (06:30)
[2018-07-27 07:00] VITALS: BP 110/75
[2018-07-27] MEDS: AcetaZOLAMIDE INJ 500 MG IVPush SCH ×2 (08:03→20:55)
[2018-07-27] MEDS: OMEPRAZOLE 20 MG CAPSULE.DR PO SCH (08:04)
[2018-07-27] MEDS: CITALOPRAM 20 MG TABLET PO SCH (08:04)
[2018-07-27] MEDS: ONDANSETRON ODT 4 MG PO PRN (08:04)
[2018-07-27 13:29] VITALS: BP 117/74
[2018-07-27] MEDS: SCOPOLAMINE PATCH, 1.5MG PATCH.TD72 TD SCH (15:16)
[2018-07-27 19:25] VITALS: BP 114/62
[2018-07-28 01:40] VITALS: BP 144/83
[2018-07-28 06:43] VITALS: BP 116/74
[2018-07-28] MEDS: OMEPRAZOLE 20 MG CAPSULE.DR PO SCH (07:19)
[2018-07-28] MEDS: HYDROmorphone 2 MG/ML, 1ML IVPush PRN ×4 (07:20→21:06)
[2018-07-28] MEDS: ONDANSETRON 2MG/ML, 2ML IVPush PRN ×3 (07:20→21:05)
[2018-07-28] MEDS: CITALOPRAM 20 MG TABLET PO SCH (08:08)
[2018-07-28] MEDS: AcetaZOLAMIDE INJ 500 MG IVPush SCH ×2 (08:08→21:05)
[2018-07-28 13:04] VITALS: BP 131/88
[2018-07-28 19:19] VITALS: BP 130/75
[2018-07-29 02:22] VITALS: BP 145/85
[2018-07-29] MEDS: ONDANSETRON 2MG/ML, 2ML IVPush PRN ×3 (04:06→16:51)
[2018-07-29] MEDS: HYDROmorphone 2 MG/ML, 1ML IVPush PRN ×5 (04:06→23:47)
[2018-07-29 06:36] VITALS: BP 133/68
[2018-07-29] MEDS: OMEPRAZOLE 20 MG CAPSULE.DR PO SCH (08:06)
[2018-07-29] MEDS: CITALOPRAM 20 MG TABLET PO SCH (08:07)
[2018-07-29] MEDS: AcetaZOLAMIDE INJ 500 MG IVPush SCH ×2 (08:07→20:04)
[2018-07-29 15:59] VITALS: BP 119/77
[2018-07-29 18:43] VITALS: BP 143/97
[2018-07-29] MEDS: ATORVASTATIN 40 MG TABLET PO SCH (19:27)
[2018-07-30 00:30] VITALS: BP 150/83
[2018-07-30] MEDS: HYDROmorphone 2 MG/ML, 1ML IVPush PRN ×6 (03:09→21:27)
[2018-07-30 04:56] LABS: BASOPHILS # (AUTO) 0.05 x10^3/uL (0-0.1); BASOPHILS % (AUTO) 1 % (0-1); EOSINOPHILS % (AUTO) 1 % (1-7); LYMPHOCYTES # (AUTO) 0.83 x10^3/uL (1-3.4); LYMPHOCYTES % (AUTO) 10 % (22-44); MD NO; MEAN CORPUSCULAR HEMOGLOBIN 29.1 pg (27.5-34.5); MEAN CORPUSCULAR VOLUME 85.4 fL (81-97); MEAN PLATELET VOLUME 9.2 fL (7.4-10.4); MONOCYTES # (AUTO) 0.45 x10^3/uL (0.2-0.8); MONOCYTES % (AUTO) 5 % (2-9); NEUTROPHILS # (AUTO) 7.19 x10^3/uL (1.8-6.8); NEUTROPHILS % (AUTO) 84 % (42-75); PLATELET COUNT 166 x10^3/uL (130-400); RED BLOOD COUNT 5.35 x10^6/uL (4.38-5.82); RED CELL DISTRIBUTION WIDTH 15.6 % (9.4-14.8)
[2018-07-30 05:01] LABS: ANION GAP 8 mmol/L (5-15); CALCIUM 8.8 mg/dL (8.5-10.1); CHLORIDE 112 mmol/L (98-107); CREATININE 1.04 mg/dL (0.7-1.3)
[2018-07-30] MEDS: ONDANSETRON 2MG/ML, 2ML IVPush PRN ×2 (05:33→11:39)
[2018-07-30 07:13] VITALS: BP 135/79
[2018-07-30] MEDS: OMEPRAZOLE 20 MG CAPSULE.DR PO SCH (07:27)
[2018-07-30] MEDS: AcetaZOLAMIDE INJ 500 MG IVPush SCH ×2 (09:00→21:27)
[2018-07-30] MEDS: CITALOPRAM 20 MG TABLET PO SCH (09:00)
[2018-07-30] MEDS: MAGNESIUM HYDROXIDE 8%, 30ML UDC PO SCH (13:08)
[2018-07-30 14:42] VITALS: BP 134/84
[2018-07-30] MEDS: SCOPOLAMINE PATCH, 1.5MG PATCH.TD72 TD SCH (15:04)
[2018-07-30 19:14] VITALS: BP 121/79
[2018-07-30] MEDS: ATORVASTATIN 40 MG TABLET PO SCH (21:00)
[2018-07-30] MEDS: DOCUSATE 100 MG CAPSULE PO SCH (21:27)
[2018-07-30] MEDS: LORazepam 1MG TABLET PO PRN (22:16)
[2018-07-31 00:36] VITALS: BP 123/87
[2018-07-31] MEDS: ONDANSETRON 2MG/ML, 2ML IVPush PRN (04:41)
[2018-07-31 04:55] LABS: ALANINE AMINOTRANSFERASE 22 U/L (12-78); ALBUMIN 3.5 g/dL (3.4-5.0); ANION GAP 7 mmol/L (5-15); CALCIUM 8.8 mg/dL (8.5-10.1); CHLORIDE 114 mmol/L (98-107); CREATININE 1.02 mg/dL (0.7-1.3)
[2018-07-31 04:56] LABS: BASOPHILS # (AUTO) 0.05 x10^3/uL (0-0.1); BASOPHILS % (AUTO) 1 % (0-1); EOSINOPHILS # (AUTO) 0.22 x10^3/uL (0-0.4); EOSINOPHILS % (AUTO) 2 % (1-7); LYMPHOCYTES # (AUTO) 0.96 x10^3/uL (1-3.4); LYMPHOCYTES % (AUTO) 8 % (22-44); MD NO; MEAN CORPUSCULAR HEMOGLOBIN 28.8 pg (27.5-34.5); MEAN CORPUSCULAR HGB CONC 33.7 g/dL (33.2-36.2); MEAN CORPUSCULAR VOLUME 85.5 fL (81-97); MEAN PLATELET VOLUME 9.1 fL (7.4-10.4); MONOCYTES # (AUTO) 0.66 x10^3/uL (0.2-0.8); MONOCYTES % (AUTO) 6 % (2-9); NEUTROPHILS # (AUTO) 9.75 x10^3/uL (1.8-6.8); NEUTROPHILS % (AUTO) 84 % (42-75); PLATELET COUNT 166 x10^3/uL (130-400); RED BLOOD COUNT 5.49 x10^6/uL (4.38-5.82); RED CELL DISTRIBUTION WIDTH 15.9 % (9.4-14.8)
[2018-07-31 04:58] LABS: ALKALINE PHOSPHATASE 59 U/L (45-117); BILIRUBIN,TOTAL 0.5 mg/dL (0.2-1.0)
[2018-07-31] MEDS ORDERED: GADOBUTROL 7.5 MMOL/7.5 ML PFS ONE (06:06)
[2018-07-31] MEDS ORDERED: BACITRACIN 50,000 UNIT ONE (06:25)
[2018-07-31] MEDS ORDERED: BUPIVACAINE/PF-EPI 0.5% 1:200K ONE (06:25)
[2018-07-31] MEDS ORDERED: THROMBIN 20,000 UNIT VIAL TP ONE ×3 (06:25→09:44)
[2018-07-31] MEDS ORDERED: LACTATED RINGERS 1,000 ML IV SCH (06:48)
[2018-07-31] MEDS ORDERED: ACETAMINOPHEN 500 MG TABLET ONE (06:50)
[2018-07-31] MEDS ORDERED: MIDAZOLAM 1 MG/ML, 2ML ONE (06:51)
[2018-07-31] MEDS ORDERED: FENTANYL PF 250 MCG/5ML ONE ×4 (06:51→08:38)
[2018-07-31] MEDS ORDERED: PHENYLEPHRINE 10 MG/ML ONE (06:52)
[2018-07-31] MEDS ORDERED: PROPOFOL 10 MG/ML, 20ML ONE (06:53)
[2018-07-31] MEDS ORDERED: SUCCINYLCHOLINE 20 MG/ML, 10ML ONE (06:56)
[2018-07-31] MEDS ORDERED: ONDANSETRON 2MG/ML, 2ML ONE (06:57)
[2018-07-31] MEDS ORDERED: ACETAMINOPHEN 500 MG TABLET PO ONE (07:00)
[2018-07-31] MEDS: OMEPRAZOLE 20 MG CAPSULE.DR PO SCH (07:30)
[2018-07-31] MEDS ORDERED: CEFTRIAXONE PMX ONE (07:39)
[2018-07-31] MEDS ORDERED: ROCURONIUM 10 MG/ML,10ML ONE (07:39)
[2018-07-31] MEDS ORDERED: DEXAMETHASONE 4 MG/ML, 1ML ONE (07:39)
[2018-07-31] MEDS ORDERED: DIAZEPAM 5 MG/ML, 2ML IVPush PRN (08:30)
[2018-07-31] MEDS ORDERED: PROMETHAZINE 25 MG/ML, 1ML IV PRN (08:30)
[2018-07-31] MEDS ORDERED: ONDANSETRON 2MG/ML, 2ML IV PRN (08:30)
[2018-07-31] MEDS ORDERED: HALOPERIDOL 5 MG/ML IV PRN (08:30)
[2018-07-31] MEDS ORDERED: ONDANSETRON ODT 8 MG PO PRN (08:30)
[2018-07-31] MEDS ORDERED: hydrALAzine 20 MG/ML, 1ML IV PRN (08:30)
[2018-07-31] MEDS ORDERED: OXYcodone 5 MG/5 ML ORAL.SOL UDC PO PRN (08:30)
[2018-07-31] MEDS ORDERED: HYDROmorphone 2 MG/ML, 1ML IVPush PRN (08:30)
[2018-07-31] MEDS ORDERED: MIDAZOLAM 1 MG/ML, 2ML IV PRN (08:30)
[2018-07-31] MEDS ORDERED: LABETALOL 5MG/ML, 20ML IV PRN (08:30)
[2018-07-31] MEDS ORDERED: ALBUTEROL SULFATE 2.5 MG/3 ML NPPB PRN (08:30)
[2018-07-31] MEDS ORDERED: PROMETHAZINE 12.5 MG SUPP PR PRN (08:30)
[2018-07-31] MEDS ORDERED: MEPERIDINE/PF 25MG/0.5ML IVPush PRN (08:30)
[2018-07-31] MEDS ORDERED: MORPHINE SULFATE 4 MG/ML, 1ML IVPush PRN (08:30)
[2018-07-31] MEDS ORDERED: EPHEDRINE 50 MG/ML, 1ML IVPush PRN (08:30)
[2018-07-31] MEDS ORDERED: FENTANYL PF 100 MCG/2ML IV PRN (08:30)
[2018-07-31] MEDS: MAGNESIUM HYDROXIDE 8%, 30ML UDC PO SCH (09:00)
[2018-07-31] MEDS: DOCUSATE 100 MG CAPSULE PO SCH ×2 (09:00→20:47)
[2018-07-31] MEDS: AcetaZOLAMIDE INJ 500 MG IVPush SCH ×2 (09:00→21:07)
[2018-07-31] MEDS: CITALOPRAM 20 MG TABLET PO SCH (09:00)
[2018-07-31] MEDS ORDERED: EPHEDRINE 50 MG/ML, 1ML ONE (09:28)
[2018-07-31] MEDS ORDERED: BUPIVACAINE/PF-EPI 0.5% 1:200K INFIL ONE (09:43)
[2018-07-31] MEDS ORDERED: BACITRACIN 50,000 UNIT IM ONE (10:57)
[2018-07-31] MEDS ORDERED: OXYcodone/APAP 5/325MG TABLET PO PRN (11:30)
[2018-07-31] MEDS ORDERED: DIAZEPAM 5 MG/ML, 10ML VIAL IV PRN (11:30)
[2018-07-31] MEDS: CLINDAMYCIN PMX 900MG/50ML 50 ML IV SCH ×2 (14:47→22:32)
[2018-07-31] MEDS: SODIUM CHLORIDE 0.9% 1,000 ML IV SCH (17:29)
[2018-07-31] MEDS: HYDROmorphone 2 MG/ML, 1ML IVPush PRN ×2 (19:10→23:40)
[2018-07-31] MEDS: ATORVASTATIN 40 MG TABLET PO SCH (20:47)
[2018-08-01] MEDS: HYDROmorphone 2 MG/ML, 1ML IVPush PRN ×5 (03:57→22:38)
[2018-08-01 04:14] LABS: BASOPHILS # (AUTO) 0.01 x10^3/uL (0-0.1); BASOPHILS % (AUTO) 0 % (0-1); EOSINOPHILS # (AUTO) 0.14 x10^3/uL (0-0.4); EOSINOPHILS % (AUTO) 1 % (1-7); LYMPHOCYTES % (AUTO) 8 % (22-44); MD NO; MEAN CORPUSCULAR HEMOGLOBIN 28.9 pg (27.5-34.5); MEAN CORPUSCULAR HGB CONC 33.7 g/dL (33.2-36.2); MEAN CORPUSCULAR VOLUME 85.7 fL (81-97); MEAN PLATELET VOLUME 8.9 fL (7.4-10.4); MONOCYTES # (AUTO) 0.83 x10^3/uL (0.2-0.8); MONOCYTES % (AUTO) 6 % (2-9); NEUTROPHILS # (AUTO) 11.29 x10^3/uL (1.8-6.8); NEUTROPHILS % (AUTO) 85 % (42-75); PLATELET COUNT 155 x10^3/uL (130-400); RED BLOOD COUNT 4.97 x10^6/uL (4.38-5.82)
[2018-08-01 04:24] LABS: ANION GAP 8 mmol/L (5-15); CALCIUM 8.1 mg/dL (8.5-10.1); CHLORIDE 117 mmol/L (98-107)
[2018-08-01] MEDS: CLINDAMYCIN PMX 900MG/50ML 50 ML IV SCH (06:31)
[2018-08-01] MEDS: OMEPRAZOLE 20 MG CAPSULE.DR PO SCH (07:30)
[2018-08-01] MEDS: AcetaZOLAMIDE INJ 500 MG IVPush SCH (07:37)
[2018-08-01] MEDS: SODIUM CHLORIDE 0.9% 1,000 ML IV SCH ×2 (07:38→10:25)
[2018-08-01] MEDS: CITALOPRAM 20 MG TABLET PO SCH (09:00)
[2018-08-01] MEDS: DOCUSATE 100 MG CAPSULE PO SCH ×2 (09:00→22:38)
[2018-08-01] MEDS: MAGNESIUM HYDROXIDE 8%, 30ML UDC PO SCH (09:00)
[2018-08-01] MEDS ORDERED: POTASSIUM CHLORIDE 20 MEQ TAB.ER.PRT PO ONE (13:30)
[2018-08-01] MEDS ORDERED: DEXTROSE 5% 1,000 ML IV ONE (13:30)
--- NOTE | 2018-08-01 14:42 | NUR ---
JUMBO OPERATOR recommend dysphagia NTL diet -No straws -Up at 90 degrees -Remian up for 30-45 mintues after meals. orange sheet posted in room Addendum: 08/01/18 at [address] Amended: Links added.
[2018-08-01] MEDS ORDERED: OXYcodone/APAP 5/325MG TABLET PO PRN (15:30)
[2018-08-01 20:59] VITALS: BP 139/79
[2018-08-01] MEDS: ONDANSETRON 2MG/ML, 2ML IVPush PRN (21:23)
[2018-08-01] MEDS: ATORVASTATIN 40 MG TABLET PO SCH (22:38)
[2018-08-01] MEDS: PROMETHAZINE 25 MG/ML, 1ML IM PRN (22:55)
[2018-08-02 00:27] VITALS: BP 128/87
[2018-08-02 04:47] LABS: BASOPHILS # (AUTO) 0.02 x10^3/uL (0-0.1); BASOPHILS % (AUTO) 0 % (0-1); EOSINOPHILS # (AUTO) 0.24 x10^3/uL (0-0.4); EOSINOPHILS % (AUTO) 2 % (1-7); LYMPHOCYTES # (AUTO) 0.46 x10^3/uL (1-3.4); LYMPHOCYTES % (AUTO) 4 % (22-44); MD NO; MEAN CORPUSCULAR HGB CONC 33.7 g/dL (33.2-36.2); MEAN PLATELET VOLUME 9.1 fL (7.4-10.4); MONOCYTES # (AUTO) 0.47 x10^3/uL (0.2-0.8); MONOCYTES % (AUTO) 4 % (2-9); NEUTROPHILS # (AUTO) 11.56 x10^3/uL (1.8-6.8); NEUTROPHILS % (AUTO) 91 % (42-75); PLATELET COUNT 155 x10^3/uL (130-400); RED BLOOD COUNT 4.86 x10^6/uL (4.38-5.82); RED CELL DISTRIBUTION WIDTH 16.4 % (9.4-14.8)
[2018-08-02 05:12] LABS: CHLORIDE 110 mmol/L (98-107)
[2018-08-02 05:20] LABS: ALANINE AMINOTRANSFERASE 19 U/L (12-78); ALKALINE PHOSPHATASE 57 U/L (45-117); ANION GAP 7 mmol/L (5-15); BILIRUBIN,TOTAL 0.5 mg/dL (0.2-1.0); CALCIUM 8.1 mg/dL (8.5-10.1); TOTAL PROTEIN 6.2 g/dL (6.4-8.2)
[2018-08-02] MEDS: HYDROmorphone 2 MG/ML, 1ML IVPush PRN ×3 (05:48→19:38)
[2018-08-02] MEDS: PROMETHAZINE 25 MG/ML, 1ML IM PRN ×2 (05:59→09:48)
[2018-08-02] MEDS: ONDANSETRON 2MG/ML, 2ML IVPush PRN ×2 (06:07→19:38)
[2018-08-02] MEDS ORDERED: POTASSIUM CHLORIDE 20 MEQ TAB.ER.PRT PO ONE ×2 (07:00→17:30)
[2018-08-02] MEDS ORDERED: POTASSIUM CHLORIDE 60 MEQ in SODIUM CHLORIDE 0.9% 1,000 ML IV ONE (07:00)
[2018-08-02 07:26] VITALS: BP 137/85
[2018-08-02] MEDS: OMEPRAZOLE 20 MG CAPSULE.DR PO SCH (08:03)
[2018-08-02] MEDS: MAGNESIUM HYDROXIDE 8%, 30ML UDC PO SCH (09:44)
[2018-08-02] MEDS: DOCUSATE 100 MG CAPSULE PO SCH ×2 (09:45→21:00)
[2018-08-02] MEDS: CITALOPRAM 20 MG TABLET PO SCH (09:45)
[2018-08-02] MEDS ORDERED: GADOBUTROL 7.5 MMOL/7.5 ML PFS ONE (13:05)
[2018-08-02] MEDS: SCOPOLAMINE PATCH, 1.5MG PATCH.TD72 TD SCH (14:00)
[2018-08-02 14:08] LABS: ANION GAP 8 mmol/L (5-15); CALCIUM 8.2 mg/dL (8.5-10.1); CHLORIDE 110 mmol/L (98-107); CREATININE 0.72 mg/dL (0.7-1.3)
[2018-08-02 15:00] VITALS: BP 134/82
[2018-08-02 20:00] VITALS: BP 123/74
[2018-08-02] MEDS: ATORVASTATIN 40 MG TABLET PO SCH (21:00)
[2018-08-03 00:30] VITALS: BP 151/73
[2018-08-03] MEDS: HYDROmorphone 2 MG/ML, 1ML IVPush PRN ×6 (00:33→20:02)
[2018-08-03 05:26] LABS: ALBUMIN 2.8 g/dL (3.4-5.0); ANION GAP 7 mmol/L (5-15); BASOPHILS # (AUTO) 0.04 x10^3/uL (0-0.1); BASOPHILS % (AUTO) 1 % (0-1); CALCIUM 8.2 mg/dL (8.5-10.1); CHLORIDE 113 mmol/L (98-107); EOSINOPHILS # (AUTO) 0.01 x10^3/uL (0-0.4); EOSINOPHILS % (AUTO) 0 % (1-7); LYMPHOCYTES % (AUTO) 9 % (22-44); MD NO; MEAN CORPUSCULAR HEMOGLOBIN 28.4 pg (27.5-34.5); MEAN CORPUSCULAR HGB CONC 33.1 g/dL (33.2-36.2); MEAN CORPUSCULAR VOLUME 85.7 fL (81-97); MEAN PLATELET VOLUME 9.2 fL (7.4-10.4); MONOCYTES # (AUTO) 0.59 x10^3/uL (0.2-0.8); MONOCYTES % (AUTO) 8 % (2-9); NEUTROPHILS % (AUTO) 83 % (42-75); PLATELET COUNT 152 x10^3/uL (130-400); RED BLOOD COUNT 4.82 x10^6/uL (4.38-5.82); RED CELL DISTRIBUTION WIDTH 15.8 % (9.4-14.8)
[2018-08-03 05:29] LABS: CREATININE 0.58 mg/dL (0.7-1.3)
[2018-08-03] MEDS: ONDANSETRON 2MG/ML, 2ML IVPush PRN ×2 (06:48→17:14)
[2018-08-03] MEDS ORDERED: POTASSIUM CHLORIDE 60 MEQ in SODIUM CHLORIDE 0.9% 1,000 ML IV ONE (07:00)
[2018-08-03] MEDS: OMEPRAZOLE 20 MG CAPSULE.DR PO SCH (07:59)
[2018-08-03 08:07] VITALS: BP 116/72
[2018-08-03] MEDS: PROCHLORPERAZINE 5 MG/ML, 2ML IV PRN ×2 (10:05→20:01)
[2018-08-03] MEDS: DOCUSATE 100 MG CAPSULE PO SCH ×2 (10:07→20:02)
[2018-08-03] MEDS: MAGNESIUM HYDROXIDE 8%, 30ML UDC PO SCH (10:07)
[2018-08-03] MEDS: CITALOPRAM 20 MG TABLET PO SCH (10:08)
[2018-08-03 13:07] VITALS: BP 138/81
[2018-08-03 19:46] VITALS: BP 146/80
[2018-08-03] MEDS: ATORVASTATIN 40 MG TABLET PO SCH (20:02)
[2018-08-03] MEDS: TEMAZEPAM 15 MG CAPSULE PO PRN (23:00)
[2018-08-04] MEDS: HYDROmorphone 2 MG/ML, 1ML IVPush PRN ×7 (00:58→20:20)
[2018-08-04] MEDS: ONDANSETRON 2MG/ML, 2ML IVPush PRN ×2 (00:58→16:48)
[2018-08-04 00:59] VITALS: BP 147/76
[2018-08-04 05:18] LABS: ALBUMIN 2.8 g/dL (3.4-5.0); ANION GAP 7 mmol/L (5-15); CALCIUM 8.1 mg/dL (8.5-10.1); CHLORIDE 108 mmol/L (98-107); CREATININE 0.55 mg/dL (0.7-1.3)
[2018-08-04] MEDS ORDERED: POTASSIUM CHLORIDE 60 MEQ in SODIUM CHLORIDE 0.9% 1,000 ML IV ONE (07:00)
[2018-08-04] MEDS ORDERED: FENTANYL 12 MCG PATCH TD SCH (07:30)
[2018-08-04] MEDS ORDERED: FENTANYL REMOVE PATCH NOTE XX SCH (07:30)
[2018-08-04] MEDS: OMEPRAZOLE 20 MG CAPSULE.DR PO SCH (07:45)
[2018-08-04 09:00] VITALS: BP 141/77
[2018-08-04] MEDS: DOCUSATE 100 MG CAPSULE PO SCH ×2 (09:06→20:20)
[2018-08-04] MEDS: MAGNESIUM HYDROXIDE 8%, 30ML UDC PO SCH (09:06)
[2018-08-04] MEDS: CITALOPRAM 20 MG TABLET PO SCH (09:06)
[2018-08-04] MEDS: PROCHLORPERAZINE 5 MG/ML, 2ML IV PRN (12:57)
[2018-08-04 14:49] VITALS: BP 141/91
[2018-08-04 19:44] VITALS: BP 136/85
[2018-08-04] MEDS: ATORVASTATIN 40 MG TABLET PO SCH (20:20)
[2018-08-05] MEDS: HYDROmorphone 2 MG/ML, 1ML IVPush PRN ×6 (00:04→21:00)
[2018-08-05] MEDS: TEMAZEPAM 15 MG CAPSULE PO PRN (00:04)
[2018-08-05 05:31] LABS: ALBUMIN 2.8 g/dL (3.4-5.0); ANION GAP 6 mmol/L (5-15); CALCIUM 8.2 mg/dL (8.5-10.1); CHLORIDE 104 mmol/L (98-107); CREATININE 0.46 mg/dL (0.7-1.3)
[2018-08-05 08:12] VITALS: BP 153/82
[2018-08-05] MEDS: ONDANSETRON 2MG/ML, 2ML IVPush PRN ×2 (08:43→21:00)
[2018-08-05] MEDS: MAGNESIUM HYDROXIDE 8%, 30ML UDC PO SCH (08:43)
[2018-08-05] MEDS: DOCUSATE 100 MG CAPSULE PO SCH ×2 (08:43→21:00)
[2018-08-05] MEDS: OMEPRAZOLE 20 MG CAPSULE.DR PO SCH (08:43)
[2018-08-05] MEDS: CITALOPRAM 20 MG TABLET PO SCH (08:43)
[2018-08-05] MEDS ORDERED: FENTANYL 25 MCG PATCH TD SCH (09:00)
[2018-08-05] MEDS: PROCHLORPERAZINE 5 MG/ML, 2ML IV PRN (11:04)
[2018-08-05] MEDS: SCOPOLAMINE PATCH, 1.5MG PATCH.TD72 TD SCH (12:15)
[2018-08-05] MEDS: PROMETHAZINE 25 MG/ML, 1ML IM PRN (14:02)
[2018-08-05 14:43] VITALS: BP 147/87
[2018-08-05] MEDS ORDERED: FENTANYL REMOVE PATCH NOTE XX SCH (19:00)
[2018-08-05 20:53] VITALS: BP 155/98
[2018-08-05] MEDS: ATORVASTATIN 40 MG TABLET PO SCH (21:00)
[2018-08-06] MEDS: HYDROmorphone 2 MG/ML, 1ML IVPush PRN ×5 (01:37→21:53)
[2018-08-06] MEDS: PROCHLORPERAZINE 5 MG/ML, 2ML IV PRN ×2 (01:38→09:01)
[2018-08-06 01:40] VITALS: BP 147/88
[2018-08-06] MEDS: ONDANSETRON 2MG/ML, 2ML IVPush PRN ×2 (06:01→12:47)
[2018-08-06 07:29] VITALS: BP 141/92
[2018-08-06] MEDS: OMEPRAZOLE 20 MG CAPSULE.DR PO SCH (07:30)
[2018-08-06] MEDS: CITALOPRAM 20 MG TABLET PO SCH (08:16)
[2018-08-06] MEDS: MAGNESIUM HYDROXIDE 8%, 30ML UDC PO SCH (08:16)
[2018-08-06] MEDS: DOCUSATE 100 MG CAPSULE PO SCH ×2 (08:16→21:52)
[2018-08-06] MEDS: POTASSIUM CHLORIDE 10 MEQ in SODIUM CHLORIDE 0.9% 1,000 ML IV SCH (11:00)
[2018-08-06 13:53] VITALS: BP 151/98
[2018-08-06] MEDS ORDERED: FENTANYL PF 250 MCG/5ML ONE (16:42)
[2018-08-06] MEDS ORDERED: MIDAZOLAM 1 MG/ML, 2ML ONE (16:42)
[2018-08-06] MEDS ORDERED: THROMBIN 5,000 UNIT VIAL TP ONE (16:46)
[2018-08-06] MEDS ORDERED: BACITRACIN OINT 500U/GM, 15 GM ONE (16:46)
[2018-08-06] MEDS ORDERED: BUPIVACAINE/PF-EPI 0.5% 1:200K ONE (16:46)
[2018-08-06] MEDS ORDERED: BACITRACIN 50,000 UNIT ONE (16:46)
[2018-08-06] MEDS ORDERED: DEXAMETHASONE 4 MG/ML, 1ML ONE (17:23)
[2018-08-06] MEDS ORDERED: PHENYLEPHRINE 10 MG/ML ONE (17:23)
[2018-08-06] MEDS ORDERED: ONDANSETRON 2MG/ML, 2ML ONE (17:23)
[2018-08-06] MEDS ORDERED: ROCURONIUM 10 MG/ML,10ML ONE (17:23)
[2018-08-06] MEDS ORDERED: hydrALAzine 20 MG/ML, 1ML IV PRN (18:30)
[2018-08-06] MEDS ORDERED: LABETALOL 5MG/ML, 20ML IV PRN (18:30)
[2018-08-06] MEDS ORDERED: ONDANSETRON ODT 8 MG PO PRN (18:30)
[2018-08-06] MEDS ORDERED: HALOPERIDOL 5 MG/ML IV PRN (18:30)
[2018-08-06] MEDS ORDERED: MORPHINE SULFATE 4 MG/ML, 1ML IVPush PRN (18:30)
[2018-08-06] MEDS ORDERED: HYDROmorphone 2 MG/ML, 1ML IVPush PRN (18:30)
[2018-08-06] MEDS ORDERED: PROMETHAZINE 12.5 MG SUPP PR PRN (18:30)
[2018-08-06] MEDS ORDERED: MEPERIDINE/PF 25MG/0.5ML IVPush PRN (18:30)
[2018-08-06] MEDS ORDERED: EPHEDRINE 50 MG/ML, 1ML IVPush PRN (18:30)
[2018-08-06] MEDS ORDERED: ALBUTEROL SULFATE 2.5 MG/3 ML NPPB PRN (18:30)
[2018-08-06] MEDS ORDERED: ONDANSETRON 2MG/ML, 2ML IV PRN (18:30)
[2018-08-06] MEDS ORDERED: PROMETHAZINE 25 MG/ML, 1ML IV PRN (18:30)
[2018-08-06] MEDS ORDERED: MIDAZOLAM 1 MG/ML, 2ML IV PRN (18:30)
[2018-08-06] MEDS ORDERED: DIAZEPAM 5 MG/ML, 2ML IVPush PRN (18:30)
[2018-08-06] MEDS ORDERED: FENTANYL PF 100 MCG/2ML IV PRN (18:30)
[2018-08-06] MEDS ORDERED: OXYcodone 5 MG/5 ML ORAL.SOL UDC ONE (19:21)
[2018-08-06] MEDS: OXYcodone 5 MG/5 ML ORAL.SOL UDC PO PRN (19:26)
[2018-08-06 20:05] VITALS: BP 142/87
[2018-08-06] MEDS: CEFAZOLIN PMX 1GM/50ML 50 ML IV SCH (21:52)
[2018-08-06] MEDS: ATORVASTATIN 40 MG TABLET PO SCH (21:52)
[2018-08-06] MEDS: LORazepam 1MG TABLET PO PRN (23:00)
[2018-08-07 01:31] VITALS: BP 134/83
[2018-08-07] MEDS: HYDROmorphone 2 MG/ML, 1ML IVPush PRN ×2 (02:52→15:44)
[2018-08-07 04:57] LABS: BASOPHILS # (AUTO) 0.01 x10^3/uL (0-0.1); BASOPHILS % (AUTO) 0 % (0-1); EOSINOPHILS % (AUTO) 0 % (1-7); LYMPHOCYTES # (AUTO) 0.65 x10^3/uL (1-3.4); LYMPHOCYTES % (AUTO) 6 % (22-44); MD NO; MEAN CORPUSCULAR HEMOGLOBIN 29.1 pg (27.5-34.5); MEAN CORPUSCULAR HGB CONC 33.7 g/dL (33.2-36.2); MEAN CORPUSCULAR VOLUME 86.3 fL (81-97); MEAN PLATELET VOLUME 8.6 fL (7.4-10.4); MONOCYTES # (AUTO) 0.72 x10^3/uL (0.2-0.8); MONOCYTES % (AUTO) 6 % (2-9); NEUTROPHILS # (AUTO) 10.59 x10^3/uL (1.8-6.8); NEUTROPHILS % (AUTO) 88 % (42-75); PLATELET COUNT 168 x10^3/uL (130-400); RED BLOOD COUNT 4.78 x10^6/uL (4.38-5.82); RED CELL DISTRIBUTION WIDTH 15.7 % (9.4-14.8)
[2018-08-07 05:09] LABS: ALANINE AMINOTRANSFERASE 15 U/L (12-78); ALBUMIN 2.6 g/dL (3.4-5.0); ANION GAP 7 mmol/L (5-15); CALCIUM 8.3 mg/dL (8.5-10.1); CHLORIDE 101 mmol/L (98-107)
[2018-08-07 05:11] LABS: ALKALINE PHOSPHATASE 54 U/L (45-117); BILIRUBIN,TOTAL 0.7 mg/dL (0.2-1.0); CREATININE 0.59 mg/dL (0.7-1.3); TOTAL PROTEIN 5.4 g/dL (6.4-8.2)
[2018-08-07] MEDS: CEFAZOLIN PMX 1GM/50ML 50 ML IV SCH ×2 (06:08→14:00)
[2018-08-07] MEDS: POTASSIUM CHLORIDE 10 MEQ in SODIUM CHLORIDE 0.9% 1,000 ML IV SCH ×2 (06:08→13:03)
[2018-08-07] MEDS: OMEPRAZOLE 20 MG CAPSULE.DR PO SCH (07:30)
[2018-08-07] MEDS: PROMETHAZINE 25 MG/ML, 1ML IM PRN (07:31)
[2018-08-07] MEDS: OXYcodone 5 MG/5 ML ORAL.SOL UDC PO PRN (07:32)
[2018-08-07 07:52] VITALS: BP 145/84
[2018-08-07] MEDS: MAGNESIUM HYDROXIDE 8%, 30ML UDC PO SCH (08:31)
[2018-08-07] MEDS: CITALOPRAM 20 MG TABLET PO SCH (08:32)
[2018-08-07] MEDS: DOCUSATE 100 MG CAPSULE PO SCH (08:41)
[2018-08-07 13:15] VITALS: BP 127/77
[2018-08-07] MEDS: PROCHLORPERAZINE 5 MG/ML, 2ML IV PRN (15:43)
[2018-08-07] MEDS: LORazepam 1MG TABLET PO PRN (15:44)
[2018-08-08] MEDS ORDERED: FENTANYL REMOVE PATCH NOTE XX SCH (09:00)
== END 2018-08-07 17:57 | disposition hospice, home (50) | DRG 26 ==
LOC: ED 13:13 → EDIP 15:15 → 3NW 16:30 → ICU 07-31 08:21 → 3NW 08-01 13:35
PROVIDERS: ADMIT Internal Medicine; ATTEND Internal Medicine
PROC: 009U3ZX Drainage of Spinal Canal, Percutaneous Approach, Diagnostic (ICD-10-PCS; 2018-07-21)
PROC: B01B1ZZ Fluoroscopy of Spinal Cord using Low Osmolar Contrast (ICD-10-PCS; 2018-07-21)
PROC: 00B10ZZ Excision of Cerebral Meninges, Open Approach (ICD-10-PCS; 2018-07-31)
PROC: 03HY32Z Insertion of Monitoring Device into Upper Artery, Percutaneous Approach (ICD-10-PCS; 2018-07-31)
PROC: 00U20KZ Supplement Dura Mater with Nonautologous Tissue Substitute, Open Approach (ICD-10-PCS; principal; 2018-07-31 07:00)
PROC: 00164J6 Bypass Cerebral Ventricle to Peritoneal Cavity with Synthetic Substitute, Percutaneous Endoscopic Approach (ICD-10-PCS; 2018-08-06)
DX: C79.32 Secondary malignant neoplasm of cerebral meninges (principal); C79.31 Secondary malignant neoplasm of brain; C15.9 Malignant neoplasm of esophagus, unspecified; E87.0 Hyperosmolality and hypernatremia; G91.9 Hydrocephalus, unspecified; H47.11 Papilledema associated with increased intracranial pressure; H70.92 Unspecified mastoiditis, left ear; H53.47 Heteronymous bilateral field defects; E78.5 Hyperlipidemia, unspecified; E87.6 Hypokalemia; F17.210 Nicotine dependence, cigarettes, uncomplicated; F32.9 Major depressive disorder, single episode, unspecified; I10 Essential (primary) hypertension; I25.10 Atherosclerotic heart disease of native coronary artery without angina pectoris; I25.2 Old myocardial infarction; K21.9 Gastro-esophageal reflux disease without esophagitis; R13.10 Dysphagia, unspecified; Z51.5 Encounter for palliative care; Z79.899 Other long term (current) drug therapy; Z80.9 Family history of malignant neoplasm, unspecified; Z82.49 Family history of ischemic heart disease and other diseases of the circulatory system; Z86.73 Personal history of transient ischemic attack (TIA), and cerebral infarction without residual deficits; Z92.21 Personal history of antineoplastic chemotherapy; Z92.3 Personal history of irradiation; Z95.5 Presence of coronary angioplasty implant and graft; Z88.0 Allergy status to penicillin
CPT/HCPCS: 36415; 62270; 70450; 70543; 70552; 70553; 71260; 72156; 72157; 72158; 74177; 74230; 80048; 80053; 82040; 82042; 82164; 82784; 82945; 83735; 83873; 84100; 84157; 85025; 85549; 85610; 85651; 85730; 86038; 86039; 86140; 86256; 86480; 86592; 86645; 86695; 86696; 86762; 86777; 86778; 86850; 86900; 87070; 87075; 87081; 87102; 87116; 87205; 87206; 87899; 88108; 88307; 88331; 88333; 89051; 99285; A9585; C1713; C1729; G0378; J0690; J0696; J1100; J1170; J2250; J2405; J2550; J2704; J3010; J3360; J3480; J7070; Q0162; Q9967; A4648; C1727; C1781; C1894; J0330; J0780; J1120; J2370; J7030; J7040; J7120